=== PATIENT | female | born 1995 | race Two or more races ===

== ENCOUNTER 2025-09-07 17:23 | Emergency (ER) | payer MEDICAID, SELFPAY ==
[2025-09-07 18:56] VITALS: BP 115/60; PULSE 75; RESP 16; TEMP 37.1; O2SAT 99; BMI 28.3
--- NOTE | 2025-09-07 19:03 | XR_ITS ---
Examination: Right elbow 3 views Technique: Elbow AP, oblique, lateral 3 views Exam date and time: August, 1910 hours INDICATIONS: Patient fell today with injury to the elbow, elbow pain. FINDINGS: Soft tissue swelling medial elbow No acute fracture No elbow dislocation IMPRESSION: No acute fracture.
--- NOTE | 2025-09-07 19:06 | PD.EDUPEX ---
Upper Extremity Injury RME/HPI General Chief Complaint: Extremity Injury, Upper Stated Complaint: Right arm pain/right elbow pain from fall Time Seen by Provider: 09/07/25 19:03 Source: patient Arrival date/time: 09/07/25 17:23 Mode of arrival: ambulatory Limitations: no limitations RME / HPI complaint: injury to: right Onset (ago): hour(s) (1600 today) Other Extremity Injury: Right: elbow Other injuries: none Handedness: right Severity scale (1-10): 6 Relieving factors: none and immobilization Exacerbating factors: movement of extremity Context: fall (Patient fell while attempting to build a campfire) Treatments prior to arrival: other (Immobilized right upper extremity with a string) Related Data Allergies Allergy/AdvReac Type Severity Reaction Status Date / Time No Known Drug Allergies Allergy Verified 09/07/25 17:29 Review of Systems Constitutional Constitutional: Reports system reviewed and no additional complaints, except as documented Eyes Eyes: Reports system reviewed and no additional complaints, except as documented, Denies dry eyes, Denies exophthalmos and Reports floaters Cardiovascular Cardiovascular: Denies chest pain with activity and Denies claudication Past Medical History Past Medical History Comments PMH COMMENT: No significant past medical history ED Exam Narrative Physical exam: The right elbow is tender to palpation throughout worse at the medial aspect. There is limited range of motion secondary to subjective pain. Neurovascular is intact. And there are abrasions in and around the area of the right distal arm. General Limitations: Present no limitations Head Head exam: Present atraumatic Eye Eye exam: Present normal appearance ENT ENT exam: Present normal exam Neck Neck exam: Present normal inspection Extremities Exam Extremities exam: Present normal inspection (Except right elbow) Back Exam Back exam: Present normal inspection Neurological Exam Neurological exam: Present alert and oriented X3 Psychiatric Psychiatric exam: Present normal affect and normal mood Skin Skin exam: Present warm, dry and intact (Abrasions to the skin of the right arm. This is at the lateral aspect) Course Course Course Narrative: [place] and elbow x-ray. Quality Measures none Orders Category Date Time Status XR elbow comp RT min 3V Stat Exams 09/07/25 19:03 Completed HYDROcodone/APAP 10/325 [[place] 10/325] Med 09/07/25 19:06 Discontinued 1 tab PO X1 ONE ORDERED Vital Signs Vital signs: Vital Signs Temperature 98.7 F 09/07/25 18:56 Pulse Rate 75 09/07/25 18:56 Respiratory Rate 16 09/07/25 18:56 Blood Pressure 115/60 09/07/25 18:56 Pulse Oximetry (%) 99 09/07/25 18:56 Oxygen Delivery Method Room Air 09/07/25 18:56 Pulse ox room air 99% Extremity Injury MDM Narrative MDM Narrative:: Patient will have a proper sling and an Jono wrap to the right elbow. Patient will be discharged in no apparent distress she is to follow-up with primary care physician for referral to Ortho as necessary. She may return here if she is worse. Patient data External records reviewed:: Other (specify) (na) Clinical information provided by:: patient Social determinants that could affect healthcare access:: none Patient has the following chronic illnesses:: na How is presenting disease/condition affected by chronic disease/condition?: no chronic disease Evaluation data The following diagnostics were reviewed and interpreted by me:: radiology exam(s) (Demonstrated no apparent fracture. No apparent foreign body and there is soft tissue swelling present.) Lab and/or radiology exams considered but not ordered:: NA Interpretation Summary: NA Medications / Prescriptions Medications or Prescriptions considered but not ordered:: NA Medication administrations:: Medication Administration History Discontinued Medications Hydrocodone Bitart/Acetaminophen (Hydrocodone/[place]ap 10/325 Tab) 1 tab PO X1 ONE Stop: 09/07/25 19:07 Last Admin: 09/07/25 20:35 Dose: 1 tab Documented By: ROLO CONRAD Consultations Consultation(s) initiated? (list below): No Diagnosis Upper Extremity Injury Differential Diagnosis: fracture of wrist, finger sprain, dislocation of finger and Colles' fracture Most likely diagnosis given after review of the tests above:: NA Admission Indicated Admission indicated?: not indicated Explain why admission is indicated or not indicated:: NA Admission Request Was there a request for admission?: No Admission Attestation Admission request attestation: NA Disposition Plan Disposition Plan: Discharge Discharge Attestation Discharge Attestation: The patient and all family members were given an opportunity to ask questions and understood the discharge instructions. Discharge instructions specifically effects, indications for sooner follow up or return to the emergency department, and the expected course of current diagnosis. Patient condition: Stable Discharge Plan Plan Patient Disposition: HOME (Self Care) Discharge Disposition comment: Discharge no apparent distress Patient condition on transfer: Stable Prescriptions/Referrals Referrals: No Primary/Family,Physician [Primary Care Provider] - In 1 week Problem List Clinical Impression: Contusion of elbow, Abrasion Patient/Caregiver Discharge Instructions Discharge Activity: activity as tolerated Education Materials: Bone Contusion Print Language: Chinese Stand Alone Forms: María Elena Award Info., Patient Portal Info Letter PA/FOREIGN LEGAL CONSULTANT Supervising Physician PA/FOREIGN LEGAL CONSULTANT Supervising Physician: [email or web address]
[2025-09-07 22:39] VITALS: RESP 16
== END 2025-09-07 22:40 | disposition home or self-care (01) ==
PROVIDERS: Emergency Provider Emergency Medicine
DX: S40.811A Abrasion of right upper arm, initial encounter (principal); S50.01XA Contusion of right elbow, initial encounter; W19.XXXA Unspecified fall, initial encounter; Y93.89 Activity, other specified
CPT/HCPCS: 73080; 99282; A9270